=== PATIENT | female | born 1960 | race Caucasian/White ===

== ENCOUNTER → 2019-07-08 | Outpatient (CLI) | payer BC, OTHER | LOC: ULTRA 09:55 | DX: M71.22 Synovial cyst of popliteal space [Baker], left knee (principal); M79.89 Other specified soft tissue disorders ==

== ENCOUNTER → 2020-06-07 | Outpatient (CLI) | payer OTHER | LOC: LAB 08:09 | PROVIDERS: ATTEND Neuromusculoskeletal Medicine & OMM | DX: R55 Syncope and collapse (principal); R53.83 Other fatigue; R11.0 Nausea; Z20.828 Contact with and (suspected) exposure to other viral communicable diseases ==